=== PATIENT | male | born 1990 | race African-American/Black ===

== ENCOUNTER 2017-10-16 00:34 | Emergency (ER) | payer SELFPAY ==
[~2017-10-16] VITALS: Ht 188 cm; Wt 109.0 kg
[2017-10-16] MEDS ORDERED: EPINEPHRINE 1:1000 1 MG/ML AMP ONE (00:44)
[2017-10-16] MEDS ORDERED: DIPHENHYDRAMINE 50MG/ML VIAL ONE (00:44)
[2017-10-16] MEDS ORDERED: METHYLPREDNISOLONE SOD SUCC 125 MG/2 ML VIAL ONE (00:45)
[2017-10-16] MEDS ORDERED: METHYLPREDNISOLONE SOD SUCC 125 MG/2 ML VIAL IV ONE (01:00)
[2017-10-16] MEDS ORDERED: DIPHENHYDRAMINE 50MG/ML VIAL IV ONE (01:00)
[2017-10-16] MEDS ORDERED: EPINEPHRINE 1:1000 1 MG/ML AMP IM SCH (01:00)
[2017-10-16] MEDS ORDERED: METHYLPREDNISOLONE SOD SUCC 125 MG/2 ML VIAL IV SCH (01:00)
[2017-10-16] MEDS ORDERED: SODIUM CHLORIDE 0.9% 1,000 ML IV ONE (01:00)
[2017-10-16] MEDS ORDERED: EPINEPHRINE 1:1000 1 MG/ML AMP IM ONE (01:00)
[2017-10-16] MEDS ORDERED: DIPHENHYDRAMINE 50MG/ML VIAL IV SCH (01:15)
[2017-10-16] MEDS: FAMOTIDINE 20MG/2ML VIAL IV SCH (01:18)
[2017-10-16 02:32] VITALS: BP 127/73
== END 2017-10-16 03:25 | disposition home or self-care (01) ==
LOC: EDBD 00:34 → ER 00:34
DX: T78.09XA Anaphylactic reaction due to other food products, initial encounter (principal); Z91.013 Allergy to seafood
CPT/HCPCS: 96374; 99284; J0171; J1200; J2930; J3490; J7030; Z7610